=== PATIENT | female | born 1955 | race Caucasian/White ===

== ENCOUNTER 2017-11-19 20:14 | Emergency (ER) | payer BC, SELFPAY | END 2017-11-19 23:30 | disposition home or self-care (01) | PROVIDERS: Emergency Provider Emergency Medicine; Visit Provider Emergency Medicine | DX: E87.6 Hypokalemia (principal); E83.51 Hypocalcemia; E78.5 Hyperlipidemia, unspecified | CPT/HCPCS: 71010; 80053; 82550; 82553; 84484; 85025; 93005; 93041; 96375; 99285; J2405 ==

== ENCOUNTER → 2017-11-22 | Outpatient (POV) | payer BC, SELFPAY | PROVIDERS: Visit Provider Internal Medicine | DX: R07.89 Other chest pain (principal); R06.02 Shortness of breath; E78.5 Hyperlipidemia, unspecified | CPT/HCPCS: 93005 ==

== ENCOUNTER → 2017-11-23 | Day surgery (SDC) | payer BC, SELFPAY | PROVIDERS: Family Provider Internal Medicine Adolescent Medicine; Visit Provider Internal Medicine | DX: I25.119 Atherosclerotic heart disease of native coronary artery with unspecified angina pectoris (principal); Z72.0 Tobacco use; I49.3 Ventricular premature depolarization | CPT/HCPCS: 93458; 99152; C1725; C1769; J1644; Q9967 ==

== ENCOUNTER → 2017-12-24 08:17 | Outpatient (CLI) | payer BC, SELFPAY ==
--- NOTE | 2017-12-24 08:23 | US_ITS ---
US abdomen limited Ordering Physician: Laureen Godfrey Patient Age: 62 years: Female HISTORY: ITS.REASON: ABD PAIN,NAUSEA TECHNIQUE: Ultrasound abdomen COMPARISON : FINDINGS Pancreas unremarkable. Liver. Satisfactory minimal areas of fatty change. No lesions no biliary ductal dilatation, duct normal diameter. Portal vein appears satisfactory Gallbladder. No gallstones.. Upper normal gallbladder wall. Borderline wall Thickening. U pper normalsize gallbladder measuring 8 cm length maximally.l . Right kidney appears normal. No hydronephrosis 8.5 CM length. IMPRESSION: ----- .. No gallstones. Gallbladder borderline wall thickening and upper normal size. A biliary symptoms present consider HIDA scan Pancreas and right kidney remarkable. Liver satisfactory. Only Suggestive minor patchy early fatty changes liver.
== END ==
PROVIDERS: Family Provider Internal Medicine Adolescent Medicine; Visit Provider Nurse Practitioner Family
DX: R10.11 Right upper quadrant pain (principal); R11.0 Nausea; K63.89 Other specified diseases of intestine
CPT/HCPCS: 76705

== ENCOUNTER 2017-12-31 06:55 | Day surgery (SDC) | payer BC, SELFPAY ==
[2017-12-28 13:21] VITALS: BMI 23.6
[2017-12-31] VITALS (10 sets, daily range): BP systolic 104–141; BP diastolic 66–86; PULSE 55–79; RESP 12–21; TEMP 36.5–36.8; O2SAT 93–98
--- NOTE | 2017-12-31 08:29 | HMH.PROC ---
[facility] Procedure Note Procedure Note:: Upper Endoscopy Procedure Report: Esophagogastroduodenoscopy with cold biopsies and TTS balloon dilation Endoscopost: Omar Heath II, MD Referring Physician: Siva Valadez M.D. Date of Procedure: December 31, 2017 Equipment: Olympus GIF 180 standard upper endoscope Sedation: Fentanyl 100 mg IV/ Versed 5 mg IV Indications: Mrs. Cohen is a 62-year-old female who is here for diagnostic upper endoscopy secondary to retrosternal shaking with associated nausea. This started around November 14, 2017. She did have chills. She has noted some minor bloating and gassiness. There is no radiation of the pain into the back. She has had extensive cardiac testing including cardiac catheterization which was unremarkable. She did undergo transesophageal echocardiogram at [facility]. She does state that occasionally pills get hung up but she reports no significant dysphagia. She has had mild early satiety. She reports no abdominal pain, heartburn or reflux. Her symptoms do not usually occur in the morning but occur more as the day progresses. Foods specifically do not exacerbate her symptoms. She does have some symptoms of diaphoresis and lightheadedness. The patient does state that her shaking does radiate down her arms and legs into her fingers and toes. She gets some tingling. She does have a history of B12 deficiency. She had a colonoscopy with tn in October 2015 showing 2 benign polyps (hyperplastic polyps ?2) which were removed and colonoscopy was otherwise normal. Her x-ray showed obstipation/incomplete defecation. She does get nausea with Prilosec. Procedure: Prior to the procedure, a history and physical exam was performed, and patient's medications and allergies were reviewed. The risks, benefits and alternatives of the sedation and procedure were discussed with the patient. All questions were answered and informed consent was obtained. The patient was brought to the procedure room. Patient identification and proposed procedure were verified by the physician and the nurse. The patient was placed in a left lateral decubitus position and the scope was passed under direct vision. Throughout the procedure, the patient's blood pressure, pulse, and oxygen saturations were monitored continuously. The upper GI endoscopy was accomplished without difficulty. The patient tolerated the procedure well. Findings: The scope was passed directly into the upper esophagus and advanced to the third portion of the duodenum. The post bulbar duodenum and duodenal bulb were normal with normal mucosa and conniventes. The scope was withdrawn through a normal duodenal bulb and pylorus into the stomach. The gastric antrum had minimal linear erythema. There was atrophy with loss of vascular pattern to the body and fundus of the stomach consistent with mild atrophic gastritis. Multiple biopsies were taken from the gastric fundus on the greater curvature primarily but one biopsy was taken along the lesser curvature. Upon retroflexion there was a 2-3 cm hiatal hernia. The scope was then withdrawn into the esophagus. There was no evidence of reflux esophagitis or Negron's. There was no Schatzki's ring. There were tertiary contractions and evidence of mild esophageal dysmotility. The entire esophagus was dilated to 60 Turkmen/20 mm with a TTS hydrostatic balloon. There was resistance at the cricopharyngeus/upper esophageal sphincter. The remainder of the esophageal mucosa was normal. Impression: 1. Nonerosive GERD with moderate esophageal dysmotility, cricopharyngeal spasm and small 2-3 cm hiatal hernia 2. Mild chronic atrophic gastritis Plan: I do feel that the patient has esophageal dyskinesia/esophageal spasm causing her symptoms. We will discuss additional treatment options. I would recommend a fiber bowel regimen and promotility therapy. I will follow up the biopsies to exclude atrophic gastritis. I
[2018-01-02 18:18] LABS: Antiparietal Cell Antibody 9.9 Units (0.0-20.0)
== END 2017-12-31 09:35 | disposition home or self-care (01) ==
LOC: OUTP 06:57
PROVIDERS: Family Provider Internal Medicine Adolescent Medicine; PCP Internal Medicine Adolescent Medicine; Visit Provider Internal Medicine Gastroenterology
PROC: 0DJ08ZZ Inspection of Upper Intestinal Tract, Via Natural or Artificial Opening Endoscopic (ICD-10-PCS; CPT 43235; principal; 2017-12-31 08:00)
DX: K21.9 Gastro-esophageal reflux disease without esophagitis (principal); K44.9 Diaphragmatic hernia without obstruction or gangrene; K22.4 Dyskinesia of esophagus; K29.40 Chronic atrophic gastritis without bleeding
CPT/HCPCS: 43239; 43249; 36415; 83516; 99152; C1726

== ENCOUNTER → 2018-02-13 07:16 | Outpatient (CLI) | payer BC, SELFPAY ==
[2018-02-13 10:42] LABS: Blood Urea Nitrogen 17 mg/dL (7-18); Creatinine,Serum 0.97 mg/dL (0.55-1.02); Estimated Glomerular Filt Rate 58 ml/min (>60); GFR (African American) 70 ML/MIN (>60)
[2018-02-14 09:35] LABS: Vitamin B12 1690 pg/mL (232-1245)
== END ==
PROVIDERS: Nurse Practitioner Family; PCP Internal Medicine Adolescent Medicine; Visit Provider Internal Medicine Adolescent Medicine
DX: Z00.00 Encounter for general adult medical examination without abnormal findings (principal); E53.8 Deficiency of other specified B group vitamins
CPT/HCPCS: 36415; 82565; 82607; 84520

== ENCOUNTER → 2018-02-14 09:29 | Outpatient (CLI) | payer BC, SELFPAY ==
--- NOTE | 2018-02-14 09:34 | CT_ITS ---
CT abdomen pelvis w con CLINICAL INDICATION: Right upper quadrant pain, abdominal pain ITS.REASON: ABDOMINAL PAIN,FATIGUE ORDERING PHYSICIAN: Siva Valadez MD PATIENT AGE: 62 years COMPARISON: None TECHNIQUE: Axial images obtained with sagittal and coronal reformats. All CT scans at the facility use one or more dose reduction, viz: automated exposure control; ma/kV adjustment per patient size (including targeted exams where dose is matched to indication; i.e. head); or iterative reconstruction technique. PROCEDURE: Oral Contrast: None IV Contrast: None . FINDINGS: There are mild atelectatic changes in the left lung base. The liver, spleen, adrenal glands, gallbladder, and pancreas have an unremarkable appearance. Unremarkable appendix. No intestinal obstruction or free air. No evidence of diverticulitis. Coarse calcifications are present within the uterus. There is an exophytic soft tissue density projecting off the anterior aspect of the uterus which measures 18 mm. This may represent fibroid. No pelvic fluid collections or focal inflammatory changes evident. IMPRESSION: 1. No acute intra-abdominal or pelvic findings. 2. Coarse calcifications of the uterus with lobular exophytic soft tissue density uterus suggesting fibroid involvement.
== END ==
PROVIDERS: Family Provider Internal Medicine Adolescent Medicine; PCP Internal Medicine Adolescent Medicine; Visit Provider Internal Medicine Adolescent Medicine
DX: R10.11 Right upper quadrant pain (principal); R53.83 Other fatigue
CPT/HCPCS: 74177; Q9967

== ENCOUNTER → 2018-04-01 10:31 | Outpatient (POV) | payer BC, SELFPAY ==
[2018-04-02 15:33] LABS: H. pylori Breath Test Negative (Negative)
== END ==
PROVIDERS: Visit Provider Nurse Practitioner Acute Care
DX: B96.81 Helicobacter pylori [H. pylori] as the cause of diseases classified elsewhere (principal)
CPT/HCPCS: 83013

== ENCOUNTER → 2018-05-22 15:44 | Outpatient (CLI) | payer BC, SELFPAY ==
--- NOTE | 2018-05-22 15:46 | MM_ITS ---
MM Dig screening mamm BI w/CAD CAD Screening COMPARISON: Digital mammograms with CAD 04/02/2017 and 03/23/2016 INDICATION: There is no personal or family history of breast cancer TECHNIQUE: Standard CC and MLO images were obtained. R2 CAD reviewed. FINDINGS: Moderate scattered fibro-glandular densities are seen in both breast. There is no suspicious lesion and no suspicious microcalcifications. This is stable and small nodular density axillary tail left breast likely intramammary node. IMPRESSION: Moderate diffuse breast density with no suspicious lesion seen BI-RADS Category: 2 Benign Finding(s) RECOMMENDED FOLLOW-UP: 1YR - 1 YEAR FOLLOW-UP (A letter has been sent to the patient regarding results of the study.)
== END ==
PROVIDERS: Family Provider Internal Medicine Adolescent Medicine; Visit Provider Nurse Practitioner Obstetrics & Gynecology
DX: Z12.31 Encounter for screening mammogram for malignant neoplasm of breast (principal)
CPT/HCPCS: 77067

== ENCOUNTER → 2018-06-24 13:14 | Outpatient (POV) | payer BC, SELFPAY | PROVIDERS: Visit Provider Nurse Practitioner Acute Care | DX: Z00.00 Encounter for general adult medical examination without abnormal findings (principal) ==

== ENCOUNTER → 2018-08-19 08:24 | Outpatient (POV) | payer MEDICARE, OTHER, SELFPAY | PROVIDERS: Family Provider Internal Medicine Adolescent Medicine; PCP Internal Medicine Adolescent Medicine; Visit Provider Nurse Practitioner Acute Care | DX: Z00.00 Encounter for general adult medical examination without abnormal findings (principal) ==

== ENCOUNTER → 2018-09-28 09:54 | Outpatient (CLI) | payer MEDICARE, OTHER, SELFPAY ==
[2018-09-28 09:58] LABS: Adenovirus F 40/41, stool Not Detected (NotDetected); Astrovirus Not Detected (NotDetected); Campylobacter Not Detected (NotDetected); Clostridium Difficile A/B, PCR Not Detected (NotDetected); Cryptosporidium Not Detected (NotDetected); Cyclospora Cayetanesis Not Detected (NotDetected); Entamoeba histolytica Not Detected (NotDetected); Enteroaggregative E coli Not Detected (NotDetected); Enteropathogenic E coli Not Detected (NotDetected); Enterotoxigenic E coli Not Detected (NotDetected); Giardia lamblia Not Detected (NotDetected); Norovirus Not Detected (NotDetected); Plesimonas Shigalloides, PCR Not Detected (NotDetected); Rotavirus A Not Detected (NotDetected); Salmonella, PCR Not Detected (NotDetected); Sapovirus Not Detected (NotDetected); Shiga-like toxin E coli Not Detected (NotDetected); Shigella Enterovasive E coli Not Detected (NotDetected); Vibrio Cholerae Not Detected (NotDetected); Vibrio, PCR Not Detected (NotDetected); Yersinia Entercolitica, PCR Not Detected (NotDetected)
== END ==
PROVIDERS: Visit Provider Nurse Practitioner Family
DX: R19.7 Diarrhea, unspecified (principal)
CPT/HCPCS: 87507

== ENCOUNTER → 2018-10-07 14:17 | Outpatient (POV) | payer MEDICARE, OTHER, SELFPAY | PROVIDERS: Visit Provider Nurse Practitioner Acute Care | DX: Z00.00 Encounter for general adult medical examination without abnormal findings (principal) ==

== ENCOUNTER → 2019-01-31 09:41 | Outpatient (CLI) | payer MEDICARE, OTHER, SELFPAY ==
--- NOTE | 2019-01-31 09:46 | XR_ITS ---
XR DEXA axial skeleton HISTORY: ITS.REASON: POST MENOAPAUSAL ORDERING PHYSICIAN: Laureen Godfrey PATIENT AGE: 63 years COMPARISON: None FINDINGS: The BMD measured at the Left femoral neck is 0.788 g/cm squared with a T score of -1.8. This is considered Osteopenic according to the World Health Organization criteria. Fracture risk is Moderate. Treatment is advised. IMPRESSION: Osteopenia with moderate fracture risk. Treatment is advised. Recommend follow-up exam January 2021
== END ==
PROVIDERS: PCP Nurse Practitioner Family; Visit Provider Nurse Practitioner Family
DX: Z13.820 Encounter for screening for osteoporosis (principal); Z78.0 Asymptomatic menopausal state
CPT/HCPCS: 77080

== ENCOUNTER → 2019-06-26 15:36 | Outpatient (CLI) | payer MEDICARE, OTHER, SELFPAY ==
--- NOTE | 2019-06-26 15:42 | MM_ITS ---
MM Dig screening mamm BI w/CAD CAD Screening COMPARISON: Digital mammograms with CAD 05/22/2018 and 04/02/2017 INDICATION: There is no personal or family history of breast cancer TECHNIQUE: Standard CC and MLO images were obtained. R2 CAD reviewed. FINDINGS: Scattered fibroglandular densities are seen in both breasts. There is a mole marker left breast. There is no new or suspicious lesion in either breast and there are no suspicious microcalcifications. There is a stable benign-appearing nodular density axillary tail left breast likely a small intramammary node. IMPRESSION: Moderate diffuse breast density with no suspicious lesion seen BI-RADS Category: 2 Benign Finding(s) RECOMMENDED FOLLOW-UP: 1YR - 1 YEAR FOLLOW-UP (A letter has been sent to the patient regarding results of the study.)
== END ==
PROVIDERS: PCP Nurse Practitioner Family; Visit Provider Nurse Practitioner Obstetrics & Gynecology
DX: Z12.31 Encounter for screening mammogram for malignant neoplasm of breast (principal)
CPT/HCPCS: 77067

== ENCOUNTER → 2020-06-18 10:49 | Outpatient (CLI) | payer MEDICARE, OTHER, SELFPAY ==
--- NOTE | 2020-06-18 11:00 | XR_ITS ---
PROCEDURE: XR FOOT WT BEARING RT 3V CLINICAL INDICATION: PAIN COMPARISON: No exams were available for comparison FINDINGS: No fracture or dislocation. No lytic or blastic change. There is normal mineralization. The joint spaces are well-preserved. No significant degenerative/arthritic changes. No erosive changes evident. Other findings:None. IMPRESSION: No acute findings. Dictated by: Fco Arevalo MD 06/18/2020 14:27 Electronically signed by Fco Arevalo MD in [place] 06/18/2020 14:27
--- NOTE | 2020-06-18 11:00 | XR_ITS ---
PROCEDURE: XR FOOT WT BEARING LT 3V CLINICAL INDICATION: PAIN COMPARISON: No exams were available for comparison FINDINGS: No fracture or dislocation. No lytic or blastic change. There is normal mineralization. Type 1 os navicularis. Cystic changes are present at the base and medial aspect of the proximal phalanx of the 3rd digit. Smaller cyst is present at the distal aspect of the 2nd metatarsal laterally. There is a separate bony ossicle at the distal and medial aspect of the medial cuneiform and could be due to an old injury or osteophyte. Other findings:None. IMPRESSION: Nonspecific nonacute findings. Please see above for detail Dictated by: Fco Arevalo MD 06/18/2020 14:29 Electronically signed by Fco Arevalo MD in [facility] 06/18/2020 14:29
== END ==
PROVIDERS: PCP Nurse Practitioner Family; Visit Provider Podiatrist
DX: M79.672 Pain in left foot (principal); M79.671 Pain in right foot
CPT/HCPCS: 73630

== ENCOUNTER → 2020-08-11 13:06 | Outpatient (CLI) | payer MEDICARE, OTHER, SELFPAY ==
[2020-08-13 10:19] LABS: Covid-19 Nasal PCR Sendout Lex NOT DETECTED
== END ==
PROVIDERS: PCP Nurse Practitioner Family; Visit Provider Nurse Practitioner Family
DX: R50.9 Fever, unspecified (principal); Z03.818 Encounter for observation for suspected exposure to other biological agents ruled out
CPT/HCPCS: U0004

== ENCOUNTER → 2021-07-14 12:39 | Outpatient (CLI) | payer MEDICARE, OTHER, SELFPAY ==
--- NOTE | 2021-07-14 13:04 | XR_ITS ---
PROCEDURE: XR KNEE LT 3V CLINICAL INDICATION: PARESTHESIA OF LT LOWER EXTREMITY COMPARISON: No exams were available for comparison FINDINGS: No fracture or dislocation. No lytic or blastic change. There is normal mineralization. Minimal osteoarthritic changes are present involving the medial compartment and patellofemoral joint. IMPRESSION: Minimal osteoarthritic change. Dictated by: Fco Arevalo MD 07/14/2021 16:14 Fco Arevalo MD in [facility] 07/14/2021 16:14
[2021-07-14 13:51] LABS: Alanine Aminotransferase 20 U/L (12-78); Albumin Level 4.6 g/dl (3.5-5.0); Albumin/Globulin Ratio 1.6 (1.1-1.8); Alkaline Phosphatase 96 U/L (38-126); Anion Gap 14.5 mEq/L (5-15); Aspartate Amino Transferase 38 U/L (14-36); Bilirubin,Total 0.5 mg/dl (0.2-1.3); Blood Urea Nitrogen 15 mg/dl (7-17); Calcium 7.2 mg/dl (8.4-10.2); Carbon Dioxide 32 mmol/L (22.0-30.0); Chloride 97 mmol/L (98-107); Estimated Glomerular Filt Rate 62 ml/min (>60); GFR (African American) 75 ML/MIN (>60); Globulin 2.9 g/dL (1.3-3.2); Glucose 97 mg/dl (74-100); Potassium 4.5 mmoL/L (3.5-5.1); Sodium 139 mmol/L (136-145); Total Protein,Serum 7.5 g/dl (6.3-8.2)
[2021-07-15 17:34] LABS: Calcium, Ionized 3.9 mg/dL (4.5-5.6)
== END ==
PROVIDERS: PCP Nurse Practitioner Family; Visit Provider Nurse Practitioner Family
DX: E83.51 Hypocalcemia (principal); R20.2 Paresthesia of skin
CPT/HCPCS: 36415; 73562; 80053; 82330; 84443

== ENCOUNTER → 2021-07-25 09:24 | Outpatient (CLI) | payer MEDICARE, OTHER, SELFPAY ==
--- NOTE | 2021-07-25 09:28 | XR_ITS ---
PROCEDURE: XR DEXA AXIAL SKELETON CLINICAL HISTORY: POST MENOPAUSAL COMPARISON: CR DEXAAX XR DEXA axial skeleton from 01/31/2019 FINDINGS: The right hip BMD is 0.689 with a T-score of -1.4. The left hip BMD is 0.658 with a T-score of -1.7. The lumbar spine BMD is 0.923 with a T-score of -1.1. Previously the lowest density was in the left femoral neck with T-score -1.8 IMPRESSION: This patient is considered osteopenic according to the World Health Organization criteria. Bone density is between 10 and 25 percent below young normal. Fracture risk is moderate. Treatment is advised. Based on these results a follow-up exam is recommended in 2 year. Dictated by: Fco Arevalo MD 07/25/2021 14:42 Fco Arevalo MD in [facility] 07/25/2021 14:42
--- NOTE | 2021-07-25 09:28 | MM_ITS ---
PROCEDURE: MM DIG SCREENING MAMM BI W/CAD Digital Breast Tomosynthesis Included CLINICAL INDICATION: SCREENING There is a history of breast cancer in the patient's paternal great COMPARISON: MG DMSB DIG MAMM-SCREEN JER W/CAD from 04/02/2017 MG SCBI MM Dig screening mamm BI w/CAD from 05/22/2018 MG MM DIG SCREENING MAMM BI W/CAD from 06/26/2019 TECHNIQUE: Standard CC and MLO images and 3D Tomosynthesis was obtained. R2 CAD reviewed. FINDINGS: Mild scattered fibroglandular densities are seen throughout both breasts.. There are no CAD markings. There is a mole marker left breast. There is a stable tiny nodular density tail left breast likely low-lying node. There is no suspicious lesion and no suspicious microcalcifications. IMPRESSION: Fibrofatty parenchyma with no suspicious lesions seen BI-RAD Category: 2 Benign Finding(s) FOLLOW-UP: 1YR 1 Year Follow-up (A letter has been sent to the patient regarding results of the study.) Dictated by: Dr. Grupo Frost MD 07/29/2021 09:26 Dr. Grupo Frost MD in [place] 07/29/2021 09:26
== END ==
PROVIDERS: PCP Nurse Practitioner Family; Visit Provider Nurse Practitioner Family
DX: Z12.31 Encounter for screening mammogram for malignant neoplasm of breast (principal); Z13.820 Encounter for screening for osteoporosis; Z78.0 Asymptomatic menopausal state
CPT/HCPCS: 77063; 77067; 77080

== ENCOUNTER → 2021-08-12 07:50 | Outpatient (CLI) | payer MEDICARE, OTHER, SELFPAY ==
--- NOTE | 2021-08-12 07:51 | CA_ITS ---
APPROVED REPORT EXAM: Comprehensive 2D, Doppler, and color-flow Echocardiogram Final Finisher: Tamela Be RT(R) Ht: 5 ft 4 in Wt: 166lbs BSA: 1.81 BP: 129/84 mmHg Indications: HTN, hyperlipidemia, CAD, murmur 2D Dimensions LVOT 1.86 cm (M/F) 1.5-2.5 M-Mode Dimensions RVDd 2.60 cm (0.9-2.6) LA Diam 3.62 cm (1.9-4.0) LVDd 4.49 cm (3.5-5.7) Ao Diam 3.16 cm (2.0-3.7) LVDs 2.99 cm (3.5-5.7) IVSd 0.64 cm (0.6-1.1) PWd 0.82 cm (0.6-1.1) EF (Teich) 62.30% FS 33.40% EDV (Teich) 92.00 mL ESV (Teich) 34.70 mL LV Diastology E Decel Time 170.00 (160-240 msec) E/A Ratio 0.9 MED E' 8.10 (< 7 cm/sec) E'/MED E' Ratio 9.53 (>14) LAT E' 6.60 (<10 cm/sec) E/LAT E' Ratio 11.70 (>14) Mitral Valve MV E Max Alden. 77.00 (40-130 cm/s) MV A Velocity 87.00 (40-130 cm/s) E/A Ratio 0.89 MV Decel. Time 170.00 (160-240 ms) MV PHT 50.00 ms Left Ventricle Left atrium is mildly enlarged, left ventricle is normal size, mild concentric left ventricular hypertrophy, visually estimated ejection fraction of 55% with no regional wall motion abnormality, diastolic parameters are inconclusive. Right Ventricle Right atrium and right ventricle are mildly enlarged with normal contractility. Aortic Valve Aortic valve is minimally thickened and fibrosed, there is no aortic stenosis or aortic insufficiency. Mitral Valve Mitral valve leaflets are minimally thickened, there is mild mitral regurgitation. Tricuspid Valve Tricuspid valve grossly normal, there is mild tricuspid regurgitation, tricuspid regurgitation jet velocity is inadequate for calculation of the right ventricular systolic pressure. Pulmonic Valve Pulmonic valve is poorly visualized. There is mild pulmonic insufficiency. Great Vessels Aortic root is normal size. Inferior vena cava is not well visualized. Pericardium No significant pericardial effusion noted. Conclusion 1. Mild biatrial enlargement, normal left ventricular size, mild concentric left ventricular hypertrophy, visually estimated ejection fraction 55% with no regional wall motion abnormality, diastolic parameters are inconclusive. 2. Mildly enlarged right ventricle with normal contractility. 3. Thickened and calcified aortic valve without aortic stenosis or aortic insufficiency. 4. Mild mitral and tricuspid regurgitation. 5. No significant pericardial effusion noted. Electronically signed by : Dangelo French MD 08/12/2021 13:38:25
== END ==
PROVIDERS: PCP Nurse Practitioner Family; Visit Provider Urology
DX: E78.2 Mixed hyperlipidemia (principal); I05.9 Rheumatic mitral valve disease, unspecified; I11.9 Hypertensive heart disease without heart failure; I25.10 Atherosclerotic heart disease of native coronary artery without angina pectoris
CPT/HCPCS: 93306

== ENCOUNTER → 2022-04-17 10:21 | Outpatient (CLI) | payer MEDICARE, OTHER, SELFPAY ==
--- NOTE | 2022-04-17 10:24 | US_ITS ---
FINAL REPORT TECHNIQUE: Sonographic images of the soft tissues of the neck were obtained in the longitudinal and transverse planes. CLINICAL HISTORY: CERVICAL LYMPHADENOPATHY-- palp area lt lat neck FINDINGS: There is a 3.6 cm soft tissue nodule at the area of interest which could represent an enlarged lymph node. No other mass is visualized. No fluid collection is seen. IMPRESSION: Left cervical lymphadenopathy at the area of interest. Consider CT for further evaluation. Reviewed, Interpreted and Dictated by Jaky Izaguirre MD Transcribed by Flora Cruz Authenticated by Jaky Izaguirre MD on 04/17/2022 01:21:13 PM [facility]
== END ==
PROVIDERS: PCP Nurse Practitioner Family; Visit Provider Nurse Practitioner Family
DX: R59.0 Localized enlarged lymph nodes (principal)
CPT/HCPCS: 76536

== ENCOUNTER → 2022-04-18 09:58 | Outpatient (CLI) | payer MEDICARE, OTHER, SELFPAY ==
--- NOTE | 2022-04-18 10:06 | XR_ITS ---
FINAL REPORT CLINICAL HISTORY: LAD (LYMPHADENOPATHY) COMPARISON: October 05, 2019 FINDINGS: PA and lateral views of the chest were obtained. The cardiac and mediastinal silhouettes are within normal limits. Lingular opacity is unchanged since 2019 and is likely chronic atelectasis or scar. The lungs are otherwise clear. There is no pleural effusion or pneumothorax. No acute osseous abnormality is identified. IMPRESSION: Lingular opacity unchanged since 2019, likely chronic atelectasis or scar. Reviewed, Interpreted and Dictated by Jaky Izaguirre MD Transcribed by Mirela Hilario Authenticated by Jaky Izaguirre MD on 04/18/2022 11:54:22 AM [facility]
== END ==
PROVIDERS: PCP Nurse Practitioner Family; Visit Provider Nurse Practitioner Family
DX: R59.1 Generalized enlarged lymph nodes (principal)
CPT/HCPCS: 71046

== ENCOUNTER → 2022-04-20 12:29 | Outpatient (CLI) | payer MEDICARE, OTHER, SELFPAY ==
--- NOTE | 2022-04-20 13:07 | CT_ITS ---
FINAL REPORT TECHNIQUE: Thin section axial CT images with coronal and sagittal reformats were performed after the administration of IV contrast. This study was performed with techniques to keep radiation doses as low as reasonably achievable (ALARA). Individualized dose reduction techniques using automated exposure control or adjustment of mA and/or kV according to the patient''s size were employed. CLINICAL HISTORY: CERVICAL ADENOPATHY, RECENT ULTRASOUND SHOWED ENLARGED LYMPH NODE LEFT SIDE COMPARISON: Ultrasound dated 04/17/2022 FINDINGS: The nasopharynx, oropharynx, epiglottis, and larynx are within normal limits. The thyroid is homogeneous. The salivary glands are unremarkable. There are several small lymph nodes, largest measures only 1.4 cm. No right cervical lymphadenopathy is identified. No fluid collection is seen. The remaining soft tissues are unremarkable. IMPRESSION: Small left cervical lymph nodes. None measure as large as those seen on ultrasound. This could be related to improved lymphadenopathy or technique on ultrasound. No mass or fluid collection. No acute abnormality. Reviewed, Interpreted and Dictated by Jaky Izaguirre MD Transcribed by Judie Moreno Authenticated by Jaky Izaguirre MD on 04/20/2022 03:55:46 PM [facility]
== END ==
PROVIDERS: PCP Nurse Practitioner Family; Visit Provider Nurse Practitioner Family
DX: R59.0 Localized enlarged lymph nodes (principal)
CPT/HCPCS: 70491; Q9967

== ENCOUNTER → 2023-09-06 09:22 | Outpatient (CLI) | payer MEDICARE, OTHER, SELFPAY ==
--- NOTE | 2023-09-06 09:31 | XR_ITS ---
FINAL REPORT TECHNIQUE: Bone mineral density was calculated of the lumbar spine and hip. CLINICAL HISTORY: POST MENOPAUSAL FINDINGS: Using L1-4, the bone mineral density of the spine is 0.921 g/cm2, corresponding to T-score of -1.1. Using the left hip, the bone mineral density of the femoral neck is 0.779 g/cm2, corresponding to a T-score of -1.3. NOTE: T-score: Standard deviation compared with peak bone mass of young adult mean. *Following the recommendations of the International Society of Bone densitometry, classification of hip BMD is based on the lower of two T-scores; total hip or femoral neck. IMPRESSION: Diminished bone mineral density consistent with low bone density. FRAX data reports 14% major osteoporotic fracture and 1.4% hip fracture. Reviewed, Interpreted and Dictated by Robbie Barker III, MD Transcribed by Judie Moreno Authenticated and [facility]
--- NOTE | 2023-09-06 09:32 | MM_ITS ---
PROCEDURE INFORMATION: Exam: MG Bilateral Screening 3D Mammography Exam date and time: 09/06/2023 9:34 AM Age: 68 years old Clinical indication: Screening mammogram TECHNIQUE: Imaging protocol: Bilateral Screening tomosynthesis and 2D mammography including computer-aided detection (CAD) when performed. COMPARISON: 1. MG MM DIG SCREENING MAMM BI W/CAD 07/25/2021 10:10 AM 2. MG MM DIG SCREENING MAMM BI W/CAD 06/26/2019 3:49 PM 3. MG SCBI MM Dig screening mamm BI w/CAD 05/22/2018 4:13 PM 4. MG DMSB DIG MAMM-SCREEN JER W/CAD 04/02/2017 9:45 AM FINDINGS: MAMMOGRAPHY: Breast composition: There are scattered areas of fibroglandular density. Mass: None. Architectural distortion: No new or suspicious architectural distortion. Calcifications: No new or suspicious calcifications are present Asymmetric density: No new or suspicious asymmetric density is present Skin thickening: None. Axillary adenopathy: None. IMPRESSION: No mammographic evidence of malignancy. Recommend annual screening mammography unless otherwise clinically indicated. ASSESSMENT: BI-RADS category 1: Negative
== END ==
PROVIDERS: PCP Nurse Practitioner Family; Visit Provider Nurse Practitioner Family
DX: Z78.0 Asymptomatic menopausal state (principal); Z12.31 Encounter for screening mammogram for malignant neoplasm of breast
CPT/HCPCS: 77063; 77067; 77080

== ENCOUNTER 2024-05-09 08:41 | Outpatient (CLI) | payer MEDICARE, OTHER, SELFPAY ==
--- NOTE | 2024-05-09 08:46 | XR_ITS ---
FINAL REPORT CLINICAL HISTORY: PAIN OF LT KNEE COMPARISON: 07/14/2021 FINDINGS: Three views of the left knee reveal no evidence of fracture or dislocation. The bony alignment is normal. There is mild degenerative change. A small joint effusion is noted. No localized soft tissue abnormality is seen. IMPRESSION: Mild degenerative change and small joint effusion. Reviewed, Interpreted and Dictated by Robbie Barker III, MD Transcribed by Makenna Haji Authenticated and [facility]
== END 2024-05-09 23:59 | disposition home or self-care (01) ==
LOC: LAB 08:42
PROVIDERS: PCP Nurse Practitioner Family; Visit Provider Nurse Practitioner Family
DX: M25.562 Pain in left knee (principal)
CPT/HCPCS: 73562

== ENCOUNTER 2024-10-24 15:17 | Outpatient (CLI) | payer MEDICARE, OTHER, SELFPAY ==
--- NOTE | 2024-10-24 15:26 | MM_ITS ---
PROCEDURE INFORMATION: Exam: MG Bilateral Screening 3D Mammography Exam date and time: 10/24/2024 3:24 PM Age: 69 years old Clinical indication: Screening examination. A paternal great aunt had breast cancer. TECHNIQUE: Imaging protocol: Bilateral Screening tomosynthesis and 2D mammography including computer-aided detection (CAD) when performed. COMPARISON: 1. MG MM DIG SCREENING MAMM BI W/CAD 09/06/2023 9:34 AM 2. MG MM DIG SCREENING MAMM BI W/CAD 07/25/2021 10:10 AM 3. MG MM DIG SCREENING MAMM BI W/CAD 06/26/2019 3:49 PM 4. MG SCBI MM Dig screening mamm BI w/CAD 05/22/2018 4:13 PM FINDINGS: MAMMOGRAPHY: Breast composition: There are scattered areas of fibroglandular density. Mass: No suspicious mass. Architectural distortion: None. Calcifications: No suspicious calcifications. Asymmetric density: No developing asymmetry. Skin thickening: None. Axillary adenopathy: None. IMPRESSION: No mammographic evidence of malignancy. Annual screening is recommended unless otherwise clinically indicated. ASSESSMENT: BI-RADS Category 1: Negative.
== END 2024-10-24 23:59 | disposition home or self-care (01) ==
LOC: RAD 15:21
PROVIDERS: PCP Nurse Practitioner Family; Visit Provider Nurse Practitioner Family
DX: Z12.31 Encounter for screening mammogram for malignant neoplasm of breast (principal)
CPT/HCPCS: 77063; 77067

== ENCOUNTER 2025-09-29 10:02 | Outpatient (CLI) | payer MEDICARE, OTHER, SELFPAY ==
--- NOTE | 2025-09-29 10:06 | XR_ITS ---
FINAL REPORT CLINICAL HISTORY: SOB, WHEEZING FINDINGS: PA and lateral views of the chest were obtained. There is no prior exam for comparison. The cardiac and mediastinal silhouettes are within normal limits. The lungs are well-expanded. There is no acute infiltrate or edema. There is minimal bronchial thickening There is no pleural effusion or pneumothorax. There is mild to space narrowing in the thoracic spine. No acute osseous abnormality is identified. IMPRESSION: No radiographic evidence of acute cardiac or pulmonary disease. Reviewed, Interpreted and Dictated by Jake Bingham MD Transcribed by RUBIN Butler Authenticated and . [facility]
== END 2025-09-29 23:59 | disposition home or self-care (01) ==
LOC: RAD 10:03
PROVIDERS: PCP Nurse Practitioner Family; Visit Provider Nurse Practitioner Family
DX: R06.02 Shortness of breath (principal); R06.2 Wheezing
CPT/HCPCS: 71046

== ENCOUNTER 2025-10-05 10:13 | Outpatient (CLI) | payer MEDICARE, OTHER, SELFPAY ==
--- NOTE | 2025-10-05 10:15 | XR_ITS ---
FINAL REPORT CLINICAL HISTORY: left knee pain FINDINGS: LEFT KNEE 3 views of the left knee were obtained. There is no acute fracture or dislocation. There is moderate tricompartmental degenerative change, most pronounced medially. Visualized joint spaces are normally aligned. Soft tissues are unremarkable. IMPRESSION: Degenerative change without acute bony abnormality. Reviewed, Interpreted and Dictated by Hallie Pollock MD Transcribed by Carrie Rodriguez Authenticated and [facility]
== END 2025-10-05 23:59 | disposition home or self-care (01) ==
LOC: RAD 10:15
PROVIDERS: PCP Nurse Practitioner Family; Visit Provider Physician Assistant
DX: M17.12 Unilateral primary osteoarthritis, left knee (principal)
CPT/HCPCS: 73562

== ENCOUNTER 2025-10-07 07:44 | Outpatient (CLI) | payer MEDICARE, OTHER, SELFPAY | END 2025-10-07 23:59 | disposition home or self-care (01) | LOC: RT 07:45 | PROVIDERS: PCP Nurse Practitioner Family; Visit Provider Nurse Practitioner Family | DX: R94.2 Abnormal results of pulmonary function studies (principal); R06.02 Shortness of breath | CPT/HCPCS: 94010; 94727; 94729 ==

== ENCOUNTER 2025-10-26 08:18 | Outpatient (CLI) | payer MEDICARE, OTHER, SELFPAY ==
--- NOTE | 2025-10-26 08:21 | XR_ITS ---
FINAL REPORT TECHNIQUE: Bone densitometry calculations of the lumbar spine and bilateral hips were obtained. CLINICAL HISTORY: SCREENING prior 2022 COMPARISON: 09/06/2023 FINDINGS: Using L1-4, the bone mineral density of the spine is 0.958 g/cm2, corresponding to T-score of -0.8 and a Z score of 1.4. This is within the range of normal. The bone mineral density change from baseline is 3.8%. Using the left hip, the bone mineral density of the femoral neck is 0.805 g/cm2, corresponding to a T-score of -1.1 and a Z-score of 0.5. This is within the range of osteopenia. The bone mineral density change from baseline is 8.7%. Using the right hip, the bone mineral density of the femoral neck is 0.738 g/cm?, corresponding to a T-score of -1.0 and a Z-score of 0.9. The bone mineral density change from baseline is 7.1%. NOTE: T-score: Standard deviation compared with peak bone mass of young adult mean. *Following the recommendations of the International Society of Bone densitometry, classification of hip BMD is based on the lower of two T-scores; total hip or femoral neck. IMPRESSION: 1. Bone mineral density of the lumbar spine within the range of normal. 2. Bone mineral density of the bilateral femoral necks within the range of osteopenia. Reviewed, Interpreted and Dictated by Jaky Izaguirre MD Transcribed by Leona Murray Authenticated and [facility]
--- NOTE | 2025-10-26 08:21 | MM_ITS ---
PROCEDURE INFORMATION: Exam: MG Bilateral Screening 3D Mammography Exam date and time: 10/26/2025 8:26 AM Age: 70 years old Clinical indication: Screening examination TECHNIQUE: Imaging protocol: Bilateral Screening tomosynthesis and 2D mammography including computer-aided detection (CAD) when performed. COMPARISON: 1. MG MM DIG SCREENING MAMM BI W/CAD 09/06/2023 9:34 AM 2. MG MM DIG SCREENING MAMM BI W/CAD 06/26/2019 3:49 PM FINDINGS: MAMMOGRAPHY: Breast composition: There are scattered areas of fibroglandular density. Mass: None. Architectural distortion: None. Calcifications: No suspicious calcifications. Asymmetric density: None. Skin thickening: None. Axillary adenopathy: None. IMPRESSION: No mammographic evidence of malignancy. Annual screening is recommended unless otherwise clinically indicated. ASSESSMENT: BI-RADS Category 1: Negative.
== END 2025-10-26 23:59 | disposition home or self-care (01) ==
LOC: RAD 08:19
PROVIDERS: PCP Nurse Practitioner Family; Visit Provider Nurse Practitioner Family
DX: Z12.31 Encounter for screening mammogram for malignant neoplasm of breast (principal); M81.0 Age-related osteoporosis without current pathological fracture; M85.851 Other specified disorders of bone density and structure, right thigh; M85.852 Other specified disorders of bone density and structure, left thigh; R92.323 Mammographic fibroglandular density, bilateral breasts; Z78.0 Asymptomatic menopausal state
CPT/HCPCS: 77063; 77067; 77080

== ENCOUNTER 2025-10-28 10:39 | Outpatient (CLI) | payer MEDICARE, OTHER, SELFPAY ==
--- NOTE | 2025-10-28 10:41 | CT_ITS ---
FINAL REPORT TECHNIQUE: Thin section axial images were obtained from the lung apices through the upper abdomen without contrast. This study was performed with techniques to keep radiation doses as low as reasonably achievable (ALARA). Individualized dose reduction techniques using automated exposure control or adjustment of mA and/or kV according to the patient's size were employed. CLINICAL HISTORY: SOB, ABNORMAL CHEST CT COMPARISON: None FINDINGS: There is no mediastinal, hilar, or axillary lymphadenopathy. No pleural or pericardial effusion. There is a 4 mm left upper lobe nodule best seen on image #20 of series 2. Otherwise, the lungs are clear. No consolidation is noted. Limited, unenhanced evaluation of the upper abdomen is without acute abnormality. There is deformity of the sternum, which may be secondary to remote trauma. IMPRESSION: 4 mm left upper lobe nodule as described above, without any evidence of consolidation or mass. Recommend follow-up after risk stratification is performed for Fleischner criteria. Reviewed, Interpreted and Dictated by Jaky Izaguirre MD Transcribed by Leona Murray Authenticated and [facility]
== END 2025-10-28 23:59 | disposition home or self-care (01) ==
LOC: RAD 10:40
PROVIDERS: PCP Nurse Practitioner Family; Visit Provider Nurse Practitioner Family
DX: R91.1 Solitary pulmonary nodule (principal); R06.02 Shortness of breath; R93.89 Abnormal findings on diagnostic imaging of other specified body structures
CPT/HCPCS: 71250